=== PATIENT | male | born 1935 | race African-American/Black ===

== ENCOUNTER 2020-03-10 11:49 | Inpatient (IN) | payer OTHER ==
[~2020-03-10] VITALS: Ht 182.9 cm; Wt 70.6 kg
[2020-03-10 11:51] VITALS: BP 122/58
[2020-03-10 12:13] LABS: ABSOLUTE NEUTROPHILS 8.3 thou/uL (1.4-8.2); BASOPHILS 0.8 % (0.0-2.0); EOSINOPHILS 1.8 % (0.0-3.0); HEMATOCRIT 45.4 % (42.0-52.0); HEMOGLOBIN 15.5 gm/dL (14.0-18.0); LYMPHOCYTES 8.6 % (24.0-44.0); MCH 30.8 pg (26.0-34.0); MCV 90.4 fL (80.0-100.0); PLATELET COUNT 212 thou/uL (150-400); POLYS 82.8 % (36.0-66.0); RBC 5.03 mil/uL (4.50-6.00); RDW 14.8 % (10.5-14.5)
[2020-03-10 12:20] LABS: CALCIUM 8.3 mg/dL (8.5-10.1); CREATININE 1.4 mg/dL (0.7-1.3); POTASSIUM 3.9 mmol/L (3.5-5.1)
[2020-03-10] MEDS ORDERED: VITAMIN D21250 MC1 PO (12:24)
[2020-03-10] MEDS ORDERED: ARICEPT10 M1 PO (12:24)
[2020-03-10] MEDS ORDERED: NORVASC10 MG PO (12:25)
[2020-03-10] MEDS ORDERED: LEVO-T50 MCG PO (12:25)
[2020-03-10] MEDS ORDERED: NAMENDA 5 MG TAB5 M1 PO (12:25)
[2020-03-10 12:26] LABS: ALBUMIN 3.5 g/dL (3.4-5.0); DIRECT BILIRUBIN 0.2 mg/dL (<0.1-0.2); TOTAL BILIRUBIN 1.4 mg/dL (<0.1-1.0)
[2020-03-10] MEDS ORDERED: EZETIMIBE10 MG PO (12:26)
[2020-03-10] MEDS ORDERED: ZESTRIL40 MG PO (12:26)
[2020-03-10] MEDS ORDERED: LIPITOR40 MG PO (12:26)
[2020-03-10] MEDS ORDERED: ASA81BEC PO (12:26)
--- NOTE | 2020-03-10 12:30 | EKG ---
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
[2020-03-10 12:42] LABS: URINE BILIRUBIN NEGATIVE (Negative); URINE BLOOD TRACE (Negative); URINE CLARITY CLEAR; URINE COLOR YELLOW; URINE GLUCOSE-RANDOM* NEGATIVE (Negative); URINE KETONES 1+ (Negative); URINE LEUKOCYTES-REFLEX NEGATIVE (Negative); URINE NITRITE-REFLEX NEGATIVE (Negative); URINE PROTEIN (DIPSTICK) NEGATIVE (Negative); URINE SPECIFIC GRAVITY 1.025 (1.005-1.035)
[2020-03-10 12:54] LABS: AMP/METHAMP Negative (Negative); BARBITURATES Negative (Negative); BENZODIAZEPINES Negative (Negative); COCAINE Negative (Negative); METHADONE Negative (Negative); OPIATES Negative (Negative); PCP Negative (Negative)
[2020-03-10 14:19] VITALS: BP 119/58
[2020-03-10 14:50] VITALS: BP 135/67
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
[2020-03-10 19:29] VITALS: BP 141/71
[2020-03-10 22:51] VITALS: BP 141/71
--- NOTE | 2020-03-11 06:20 | NUR ---
Assumed care @ 1900 on 03/10/20. In bed at the start of shift. Awakens to voice, alert but does not respond to orientation questions, not even to person. Compliant with medication administration. Got out of bed multiple times and then reclined into a hallie chair in the day room. 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 Sleep 8.5 hours overnight.
[2020-03-11 08:00] VITALS: BP 139/77
--- NOTE | 2020-03-11 08:55 | NUR ---
0710 ASSUMED CARE OF PATIENT, PATIENT IN BED WITH EYES CLOSED AT THAT TIME. 0830 TO DAYROOM FOR BREAKFAST. MEDICATIONS GIVEN WHOLE. WILL CONTINUE TO OBSERVE.
[2020-03-11 09:48] LABS: CALCIUM 8.9 mg/dL (8.5-10.1); CREATININE 1.5 mg/dL (0.7-1.3); POTASSIUM 3.7 mmol/L (3.5-5.1)
[2020-03-11 10:24] LABS: TSH 4.031 uIU/mL (0.358-3.740)
--- NOTE | 2020-03-11 14:51 | NUR ---
LORENZO and Dr. Kasper contacted pt's daughter and JOSE Sheryl and obtained background hx. In 2014, pt underwent testing that resulted in him being dx with cognitive impairment. Lately, he has been aggressive with his family. His daughter would like assistance in placing him into a facility. Pt has 5 siblings; 4 are and his living sister lives in [place]. Pt has 6 children. Pt has been 1 and is now . Pt served in the [employer]. He suffers from high cholesterol. Sheryl said pt has NKDA. LORENZO emailed a listing of NH options from the Medicare.gov website to . LORENZO team will continue to follow pt during his stay on this unit.
--- NOTE | 2020-03-11 17:59 | NUR ---
PATIENT CALM AND COOPERATIVE. PATIENT MUMBLES AND HARD TO UNDERSTAND. PATIENT SITS IN DAYROOM QUIETLY ON COUCH. PATIENT DID REST FOR 1.5 HRS TODAY IN ROOM. PATIENT IS NOT ORIENTED, UNABLE TO ANSWER QUESTIONS WHEN ASKED. PATIENT ASKED ABOUT GOING DOWN STAIRS TODAY AND WHEN ASIAN STUDIES PROGRAM CHAIR TRIED TO REDIRECT HIM PATIENT STARTED TO MUMBLE.
[2020-03-11 19:37] VITALS: BP 97/51
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
--- NOTE | 2020-03-12 01:25 | NUR ---
Assumed care at change of shift. Pt. was sitting in day room on couch watching TV. Assessment was completed. Pt. was calm and cooperative. He is alert and oriented to name only. His speech is mumbled and nonsensical. His affect is lacking emotion and his behavior was well controlled. He was cooperative with cares and took medication whole with water. No coughing or choking noted after swallowing. No signs or symptoms of pain or distress noted.
[2020-03-12 07:20] VITALS: BP 91/52
--- NOTE | 2020-03-12 09:01 | NUR ---
ASSUMED CARE AT 0700 THIS MORNING. HE IS SITTING AT THE DINING ROOM TABLE, DRESSED. HE TOOK HIS MEDICATIONS WITHOUT DIFFICULTY. QUIET AND NON VERBAL TO THIS RN AT BREAKFAST. LUNGS CTA, HRR.
--- NOTE | 2020-03-12 09:05 | NUR ---
ASSUMED CARE AT 0700 THIS MORNING. HIS AMLODIPINE WAS HELD THIS MORNING DUE TO B/P OF . HE TOOK THE REMAINDER OF HIS MEDICATIONS WITHOUT DIFFICULTY. HE IS EATING WELL AND FEEDING HIMSELF. HE DENIES ACHES AND PAINS THIS MORNING.
[2020-03-12 09:54] VITALS: BP 91/52
[2020-03-12 13:44] LABS: HEMATOCRIT 41.8 % (42.0-52.0); HEMOGLOBIN 14.2 gm/dL (14.0-18.0); MCH 30.5 pg (26.0-34.0); MCV 89.8 fL (80.0-100.0); RBC 4.65 mil/uL (4.50-6.00); RDW 14.9 % (10.5-14.5); WBC 10.4 thou/uL (4.0-11.0)
[2020-03-12 14:04] LABS: ALBUMIN 3.7 g/dL (3.4-5.0); ANION GAP 12 mmol/L (7-16); BUN 58 mg/dL (7-18); CALCIUM 8.5 mg/dL (8.5-10.1); CHLORIDE 95 mmol/L (98-107); CO2 21 mmol/L (21-32); CREATININE 2.4 mg/dL (0.7-1.3); GLUCOSE 128 mg/dL (74-106); MAGNESIUM 2.2 mg/dL (1.8-2.4); POTASSIUM 4.1 mmol/L (3.5-5.1); SGOT 30 U/L (15-37); SGPT 30 U/L (30-65); SODIUM 128 mmol/L (136-145); TOTAL BILIRUBIN 0.5 mg/dL (<0.1-1.0); TOTAL PROTEIN 8.1 g/dL (6.4-8.2); TROPONIN-I <0.06 ng/mL (<0.06)
--- NOTE | 2020-03-12 17:08 | NUR ---
SW met with patient 1:1 in lieu of group due to COVID-19 restrictions. Patient engaged with SW but had limited responsiveness due to cognitive impairment.
[2020-03-12 19:42] VITALS: BP 124/66
--- NOTE | 2020-03-12 22:15 | NUR ---
Assumed care of patient this pm shift. Patients sodium 128, BUN and Creatinine rising. Patient is to be transferred to 214. Patient appears to be in a good mood. Patients speech is garbled. Patient in hospital attire. Patient denies pain, denies hi/si. Patient is difficult to understand, yes and no questions help with simplifying communication with staff. Patient takes medications whole. Patient ambluates with an unsteady gait. Patient is currently sitting in a wheel chair. Patients assessment shows clear breath sounds, active bowel sounds, and s1 s2 heard with auscultation. Daughter called regarding patients discharge to 2nd floor.
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
== END 2020-03-12 22:41 | disposition short-term general hospital (02) | DRG 56 ==
LOC: ER 11:49 → SBH 13:54 → EROBS 13:54 → SBH 14:36
PROVIDERS: Emergency Medicine; Internal Medicine; ADMIT Psychiatry & Neurology Psychiatry
DX: G30.9 Alzheimer's disease, unspecified (principal); N17.0 Acute kidney failure with tubular necrosis; F02.81 Dementia in other diseases classified elsewhere, unspecified severity, with behavioral disturbance; N17.9 Acute kidney failure, unspecified; E03.9 Hypothyroidism, unspecified; I12.9 Hypertensive chronic kidney disease with stage 1 through stage 4 chronic kidney disease, or unspecified chronic kidney disease; N18.9 Chronic kidney disease, unspecified; E78.5 Hyperlipidemia, unspecified; Z79.82 Long term (current) use of aspirin; Z79.899 Other long term (current) drug therapy; Z88.5 Allergy status to narcotic agent; Z88.8 Allergy status to other drugs, medicaments and biological substances; Z95.1 Presence of aortocoronary bypass graft; I95.1 Orthostatic hypotension
CPT/HCPCS: 10880

== ENCOUNTER 2020-03-12 20:58 | Observation (INO) | payer OTHER ==
--- NOTE | ~2020-03-12 | HC ---
[place] [address] CONSULTATION Name: TERRENCE SO Room #: 202-P ADM IN M.R.#: [id number] Admission: 03/12/20 Attend Phys: Lucía Hicks MD Discharge: Date of : 35 Report #: [id number] THIS REPORT FOR: cc: EVERETT - Family physician unknown EVERETT - Family physician unknown Gurmeet Dukes MD ~ CC: Lucía FLOYD unknown DATE OF SERVICE: 03/13/2020 REASON FOR CONSULTATION: Elevated creatinine. REASON FOR PRESENTATION: Transferred from his behavioral unit due to abnormal creatinine. HISTORY OF PRESENT ILLNESS: This is obtained from the medical chart as the patient is currently not able to provide me with history. He has Alzheimer's dementia, hypertension, ____, coronary artery disease, looks like that labs were drawn on the patient and this showed that his creatinine is up to 2.4. He was transferred to our hospital for further evaluation and management. History is very limited due to the patient's current mental status. With resuscitation, the patient's creatinine has gone down to his baseline of around 1.5. PAST MEDICAL HISTORY: Per medical chart, 1. Hypertension. 2. Hyperlipidemia. 3. ____. 4. Alzheimer dementia. PAST SURGICAL HISTORY: CABG. SOCIAL HISTORY: Unobtainable given the patient's current mental status. FAMILY HISTORY: Unobtainable given the patient's current mental status. ALLERGIES: OXYCODONE. MEDICATIONS: 1. Lisinopril. 2. ____. 3. Atorvastatin. 4. Amlodipine. REVIEW OF SYSTEMS: Unobtainable given the patient's current mental status. [address] [place] [address] CONSULTATION Name: TERRENCE SO Room #: 202-P [facility] IN M.R.#: [id number] Admission: 03/12/20 Attend Phys: Lucía Hicks MD Discharge: Date of : 35 Report #: [id number] PHYSICAL EXAMINATION: GENERAL: He is disoriented. VITAL SIGNS: Blood pressure is 125/51, temperature is 36.3. HEAD AND NECK: No jugular venous distention. CHEST: Decreased air entry bilaterally. CARDIOVASCULAR: No rub detected. ABDOMEN: Soft, nontender with no hepatosplenomegaly. EXTREMITIES: Lower extremities, no edema. LABORATORY VALUES: Revealed a BUN of 42, creatinine of 1.5. Sodium is 132. IMPRESSION AND PLAN: 1. Acute kidney injury due to volume depletion while on an angiotensin converting enzyme inhibitor. 2. His creatinine seems to be responding to IV fluid. Continue with IV fluid until the patient is able to take orally. 3. I am available for any questions. Now that the patient's creatinine is coming back to his baseline, I will sign off. By: 0954 1037 Gurmeet Dukes MD /nt
[~2020-03-12 20:58] MED LIST: ARICEPT10 M1 PO; ASA81BEC PO; EZETIMIBE10 MG PO; LEVO-T50 MCG PO; LIPITOR40 MG PO; NAMENDA 5 MG TAB5 M1 PO; NORVASC10 MG PO; VITAMIN D21250 MC1 PO; ZESTRIL40 MG PO
[2020-03-12 23:02] VITALS: BP 135/61
[2020-03-13 03:42] VITALS: BP 114/62
--- NOTE | 2020-03-13 04:16 | NUR ---
PT WAS A TRANSFER FROM [facility] DUE TO VERONIKA. PT IS ALERT TO SELF AND CONFUSED. PT BECAME SLIGHTLY BECAME COMBATIVE. UNABLE TO ANSWER ADMISSION QUESTIONS, RN SPOKE TO PT'S DAUGHTER, ABBIE. ADMISSION ASSESSMENT, EDUCATION AND DATA COMPLETED WITH DAUGHTER OVER THE PHONE. NO SIGN OF DISTRESS NOTED IN PT. IV FLUID STARTED. FALL PRECAUTION IN PLACE. CONTINUE TO MONITOR PATIENT, DENIES ANY NEEDS AT THIS TIME.
[2020-03-13 06:16] LABS: HEMATOCRIT 38.8 % (42.0-52.0); HEMOGLOBIN 13.1 gm/dL (14.0-18.0); MCH 30.3 pg (26.0-34.0); MCHC 33.8 g/dL (28.0-37.0); MCV 89.6 fL (80.0-100.0); RBC 4.33 mil/uL (4.50-6.00); RDW 14.1 % (10.5-14.5); WBC 9.7 thou/uL (4.0-11.0)
[2020-03-13 06:27] LABS: CALCIUM 7.6 mg/dL (8.5-10.1); CREATININE 1.5 mg/dL (0.7-1.3); POTASSIUM 3.8 mmol/L (3.5-5.1)
[2020-03-13 07:19] VITALS: BP 125/51
[2020-03-13 11:34] VITALS: BP 135/49
--- NOTE | 2020-03-13 18:20 | NUR ---
PT A&O TO SELF, VSS, NO APPARENT PAIN. PATIENT SPEAKS IN WORD SALAD, IMPULSIVE AND COMBATIVE AT TIMES. 1X ORDER OF GEODON GIVEN AND PATIENT SLEPT FOR 15 MINS AND ATTEMPTED TO GET OUT OF BED AGAIN. PATIENT PICKS AT IV AND REMOVES TIE LAYER. PATIENT HAS FREQUENT URINATION. RENAL AND PSYCH ON BOARD. NO SIGNS OF DISTRESS, WILL CONTINUE TO MONITOR.
[2020-03-13 19:46] VITALS: BP 135/56
[2020-03-14 04:31] VITALS: BP 154/85
[2020-03-14 04:53] VITALS: BP 148/66
--- NOTE | 2020-03-14 07:26 | NUR ---
PATIENTS CARES WERE ASSUMED AT SHIFT CHANGE. PATIENT WAS ASSESSED AND MEDS WERE PASSED. PATIENT WAS CLEANED UP AND LINEN CHANGED. AFTER MEDS PATIENT DID SLEEP ALL NIGHT. THE SITTER WAS TAKEN AT ABOUT TEN. NO ISSUES WITH BEHAVIOR. HOURLY ROUNDS WERE MADE AND BED IN LOW AND LOCKED POSITION.
[2020-03-14 07:43] VITALS: BP 163/69
[2020-03-14 09:04] LABS: CREATININE 1.2 mg/dL (0.7-1.3); MAGNESIUM 2.1 mg/dL (1.8-2.4); POTASSIUM 3.9 mmol/L (3.5-5.1)
[2020-03-14 09:08] LABS: HEMATOCRIT 41.8 % (42.0-52.0); HEMOGLOBIN 13.9 gm/dL (14.0-18.0); MCHC 33.3 g/dL (28.0-37.0); MCV 90.1 fL (80.0-100.0); RBC 4.64 mil/uL (4.50-6.00); RDW 14.5 % (10.5-14.5); WBC 7.2 thou/uL (4.0-11.0)
[2020-03-14] MEDS ORDERED: MIRALAX17 GM PO (11:10)
[2020-03-14] MEDS ORDERED: GEODON20 M1 IM (11:10)
[2020-03-14] MEDS ORDERED: LEVO-T25 MCG PO (11:16)
[2020-03-14 11:25] VITALS: BP 150/70
--- NOTE | 2020-03-14 13:07 | NUR ---
ASSESSMENT CHARTED. PT ALERT AND ORIENTED TO SELF. VSS. ORDERS GIVEN TO DISCHARGE PT TO [address] [place] [address]. REPORT CALLED IN TO 5SOUT.
--- NOTE | 2020-03-14 16:22 | NUR ---
Patient admitted from [facility] with planned dc back to unit today. Sp with [facility] who expected patient to return today. no further needs.
== END 2020-03-14 13:09 | disposition psychiatric hospital, planned readmission (93) ==
LOC: 2N 20:58 → ENTRNSPT 03-14 12:44 → 2N 03-14 13:09
PROVIDERS: Nurse Practitioner Family; ADMIT Internal Medicine
DX: N17.9 Acute kidney failure, unspecified (principal); E86.9 Volume depletion, unspecified; G30.9 Alzheimer's disease, unspecified; F02.80 Dementia in other diseases classified elsewhere, unspecified severity, without behavioral disturbance, psychotic disturbance, mood disturbance, and anxiety; I95.1 Orthostatic hypotension; I12.9 Hypertensive chronic kidney disease with stage 1 through stage 4 chronic kidney disease, or unspecified chronic kidney disease; E11.22 Type 2 diabetes mellitus with diabetic chronic kidney disease; N18.9 Chronic kidney disease, unspecified; I25.10 Atherosclerotic heart disease of native coronary artery without angina pectoris; E03.9 Hypothyroidism, unspecified; E78.5 Hyperlipidemia, unspecified; Z79.4 Long term (current) use of insulin
CPT/HCPCS: 10081

== ENCOUNTER 2020-03-14 13:17 | Inpatient (IN) | payer OTHER ==
[~2020-03-14] VITALS: Ht 170.2 cm; Wt 72.6 kg
[~2020-03-14 13:17] MED LIST changes: +GEODON20 M1 IM; +LEVO-T25 MCG PO; +MIRALAX17 GM PO
--- NOTE | 2020-03-14 14:27 | NUR ---
PT. ADMITTED AT 1245 FROM THE MEDICAL FLOOR. PT. HAS DEMENTIA AND CANNOT ANSWER ANY QUESTIONS OF HIM. HE CAME TO THE FLOOR AND WAS PLACED IN BED. HE GOT RIGHT UP AND DR. PANDYA AND THIS RN PUT HIM IN A RECLINING CHAIR. HE CAME ON THE FLOOR AND THEN STOOD UP AND WALKED AWAY. PT. ATE LUNCH ON THE MEDICAL FLOOR.
--- NOTE | 2020-03-14 14:29 | NUR ---
Before pt went to medical floor he was this SW's pt. SW emailed Sheryl Morales asking if she was able to make choices from the listing she provided her on Saturday. SW team will continue to follow pt during his stay on this unit.
[2020-03-14 18:27] VITALS: BP 150/70
[2020-03-14 19:32] VITALS: BP 132/76
--- NOTE | 2020-03-15 00:35 | NUR ---
Assumed care of patient this pm shift. Patient in good spirits sitting in a recliner in the mileu. Patient is able to answer yes and no questions but needs redirection to stay on point in a conversation. Patient denies pain. Patient denies hi/si. Patient is wearing hospital clothes. Patient is ambulatory. Patients assessment shows clear breath sounds, active bowel sounds, and s1 s2 heard with auscultation. Patient is alert and oriented to self. We will continue to monitor.
[2020-03-15 06:31] LABS: CALCIUM 8.5 mg/dL (8.5-10.1); CREATININE 1.4 mg/dL (0.7-1.3); POTASSIUM 3.9 mmol/L (3.5-5.1)
[2020-03-15 07:30] VITALS: BP 131/74
--- NOTE | 2020-03-15 15:07 | NUR ---
PATIENT CARE ASSUMED THIS MORNING AT 0700 AM. PATIENT HAS BEEN RESTLESS - WANDERING AROUND THE JENKINS AND NEEDING REDIRECTION. CONFUSED - QUESTIONS ADDRESSED BUT THOUGHT PROCESSES TANGERIAL AND NOT RATIONAL. ALERT TO SELF ONLY. NEEDS TO DRINK MORE FLUIDS AND COMPLIANT WHEN STAFF SITS WITH HIM AND ENCOURAGES HIM TO DO SO. PATIENT TAKES MEDICATIONS CRUSHED IN PUDDING COMPLIANTLY. CALM - NO AGITATION OR AGGRESSION EVIDENT. COMPLIANT WITH CARES WELL.
--- NOTE | 2020-03-15 15:59 | NUR ---
PATIENT DID NOT HAVE OT WORK WITH HIM INSTRUCTED BY DR. PNADYA. EARLIER IN AFTERNOON THERAPIST STATED PATIENT NOT FOCUSED AND SHE COULD NOT HAVE HIM ENGAGE IN DIRECTIONS. ADVISED WOULD RETURN LATER ON. WHEN SHE RETURNED AT 3:30 PATIENT WAS SOUND ASLEEP IN HIS ROOM. ONCE AGAIN WE REFRAINED FROM WAKENING HIM. PATIENT HAS BEEN CALM AND SUBDUED ALL AFTERNOON.
[2020-03-15 19:40] VITALS: BP 129/68
[2020-03-15 19:47] VITALS: BP 129/68
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
--- NOTE | 2020-03-16 05:34 | NUR ---
5-5-20 care transfered at 1915; 1939 PT sitting in day room with eyes open, skin w/d, pt AAOx1, calm, pleasant and cooperative. Pt reports bi-lat knee pain at 5 on 0-10 scale; Pt denies SI/SH/HI. Pt had zero difficults taking medication with pudding, tylenol 650mg prn given. Re-evaluated pain 2145 pt scaled pain at 2 on 0-10 scale. Please referr to nursing interventions for more detail information. Zero acute distress noted.
[2020-03-16 07:26] VITALS: BP 130/52
[2020-03-16 10:16] VITALS: BP 130/52
--- NOTE | 2020-03-16 10:26 | NUR ---
ASSUMED CARE AT 0700 THIS MORNING. PT. ASLEEP IN HIS BED. HE DID NOT GET UP FOR BREAKFAST THIS MORNING. MEDS WERE CRUSHED AND PUT IN YOUGART. HE TOOK THESE WITHOUT PROBLEMS NOTED. HE WAS ALLOWED TO SLEEP IN THIS MORNING.
[2020-03-16 19:37] VITALS: BP 112/54
[2020-03-16 19:40] VITALS: BP 112/54
--- NOTE | 2020-03-17 05:20 | NUR ---
03-16-20 CARE TRANSFERED AT 1915; 1940 PT SITTING IN DAY ROOM, AAOX1, PT REPORTED HE JUST NEEDS TO GET TO HIS CAR, THEN HE CAN GO HOME. REDIRECTED PT THAT HE WAS IN THE HOSPITAL. PT WAS PLEASANT AND COOPERATIVE THROUGHOUT ASSESSMENT. PT DENIES ANY PAIN AND SI/SH/HI. APPROXIMATELY 0030 PT AWOKE AND THOUGHT HE WAS HOME WITH HIS , AND WAS TAPPING ON ROOMMATES ARM; REORIENATED HE WAS IN HOSPITAL AND HIS WAS HOME SAFE. PLEASE REFER TO NURSING INTERVENTIONS FOR MORE DETAIL INFORMATION. ZERO ACUTE DISTRESS NOTED.
[2020-03-17 07:30] VITALS: BP 129/59
--- NOTE | 2020-03-17 13:18 | NUR ---
Up ambulating t/o unit with slightly unsteady gait at times. Alert to name only. Rambling speech to other questions about orientation. Denies SI/HI. Breath sounds clear t/o. Reg HR auscultated. Color pink with brisk capillary refill and palpable peripheral pulses. No edema noted in lower extremities. Incontinent of large amt yellow urine per brief and then was able to void in toilet. Yellow liquid stool per toilet. Active bowel sounds over soft, rounded abdomen.
--- NOTE | 2020-03-17 14:06 | NUR ---
SW sent referrals for pt to [facility], [facility], [facility], [facility], and [facility]. SW team will continue to follow pt during his stay on this unit.
[2020-03-17 19:38] VITALS: BP 122/70
[2020-03-18 00:42] VITALS: BP 122/70
--- NOTE | 2020-03-18 01:33 | NUR ---
Assumed care of patient this pm shift. Patient was wondering the halls looking for unlocked rooms. Patient is ambulatory. Patient in good spirits. Patients conversation bounces from one idea or memory to another. Patient takes medications crushed in pudding. Patient denies hi/si. Patient denies pain. Patient is oriented to self. Patients assessment shows clear breath sounds, active bowel sounds, and s1 s2 heard with auscultation. Patient is very impulsive and wanders around alot. Patient is redirectable but can be resistive. We will continue to monitor.
[2020-03-18 08:37] VITALS: BP 134/73
--- NOTE | 2020-03-18 08:58 | NUR ---
LORENZO recieved a PC from Sylvia Castaneda at [facility]. Sylvia informed they would not be able to accept Pt on memory care unit due to that unit not accepting new Pt's at this time.
[2020-03-18 10:11] LABS: ALBUMIN 3.7 g/dL (3.4-5.0); CALCIUM 8.7 mg/dL (8.5-10.1); CREATININE 1.6 mg/dL (0.7-1.3); PHOSPHORUS 3.2 mg/dL (2.5-4.9); POTASSIUM 5.1 mmol/L (3.5-5.1)
--- NOTE | 2020-03-18 13:58 | NUR ---
Up ambulating in unit with slow, regular gait. Alerts to name but has confused speech to other orientation questions. Initially stated he was in [place] but then stated he was in [place]. Did not recognize he was in hospital. Compliant with meds and fluids with encouragement. Responded to questions about SI/HI with confused speech, no speech/behavior suggestive of SI/HI. Breath sounds clear t/o. Reg HR auscultated. Color pink with brisk capillary refill and palpable peripheral pulses. No edema noted. Incontinent of large amt yellow urine in brief. Active bowel sounds over soft, rounded abdomen.
[2020-03-18 18:41] VITALS: BP 107/39
[2020-03-18 19:30] VITALS: BP 91/47
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
[2020-03-19 00:47] VITALS: BP 91/47
[2020-03-19 07:46] VITALS: BP 139/87
[2020-03-19 08:00] VITALS: BP 139/87
--- NOTE | 2020-03-19 08:00 | NUR ---
PT RESTING AT THIS TIME.
--- NOTE | 2020-03-19 11:34 | NUR ---
PT WAS SLEEPING THIS AM. PT UP NOW AT THIS TIME SITTING AT TABLE IN DINING ROOM.
--- NOTE | 2020-03-19 14:27 | NUR ---
ADM TRAMADOL 25MG PO FOR PAIN TO RT THIGH OF 10 ON 1-10 SCALE.
--- NOTE | 2020-03-19 18:31 | NUR ---
PT SITTING IN ANOTHER ROOM. PT TALKED TO HIS ON PHONE NOT MAKING ANY SINCE. PT STATED HE NEEDED TO GO TO BATHROOM. ASSISTED PT TO ROOM, PT JUST WALKED AWAY FROM THE BATHROOM. PT NEEDING REDIRECTED TO HIS ROOM.
[2020-03-19 19:27] VITALS: BP 144/100
--- NOTE | 2020-03-20 05:02 | NUR ---
Assumed care of pt @ 1900. Pt calm et cooperative most of shift. Pt with difficulty redirecting during shift et had a hard time convincing pt to take crushed medications in pudding. Finally dissolved medications in thickened orange juice et pt drank most of fluid with meds. Ambulates the halls ad cammie with slightly unsteady gait. Pt refuses to use walker. VSWNL. Health assessment with no abnormalities noted at present time. Denies SI/HI but unsure if pt completely understood the questions. Currently resting in recliner in dayroom with eyes open. Will continue to monitor per protocol.
[2020-03-20 07:38] VITALS: BP 103/70
--- NOTE | 2020-03-20 11:48 | NUR ---
0700 ASSUMED CARE OF PTIENT, PATIENT AMBULATING IN JENKINS WITH NO SHIRT AT THAT TIME. PATIENT ATE BREAKFAST AFTER SETTING UP BREAKFAST FOR HIM. 0840 PATIENT ALERT & ORIENTED TO SELF. MEDICATION GIVEN CRUSHED WITH ORANGE JUICE. PATIENT CONFUSED. UNABLE TO ANSWER QUESTIONS. 0900 PATIENT AMBULATIN IN JENKINS AND DAYROOM TALKING WITH OTHER, NOT MAKING SENSE. 0910 PATIENT FELL IN DAYROOM PER SECURITY VIDEO. HILTON BLAKELY NOTICED PATIENT ON FLOOR, NO WITNESSES AT THE TIME OF FALL. PATIENT WAS HELPED BACK TO CHAIR. ZOO DIRECTOR NOTIFIED. AT 0920 BP- 122/55 P- 66. NO APPARENT INJURIES NOTED. PATIENT UNABLE TO ANSWER QUESTIONS PATIENT CONFUSED PRIOR AND AFTER INCIDENT. PATIENT'S ROM WNL DOES NOT APPEAR TO BE IN PAIN. PATIENT IN GERICHAIR AND PLACED CLOSER TO NURSES STATION. DR ZHENG NOTIFIED AT 0936 CALLED DAUGHTER AND LEFT MESSAGE TO CALL UNIT. NOTIFIED DAUGHTER AT 1025 WHEN DAUGHTER CALLED BACK. AT 1020 BP-129/61 PATIENT ATTEMPTOING TO REMOVE BP CUFF P- 58. PATIENT SLEEPING IN VICKY CHAIR AT THAT TIME. WILL CONTINUE TO OBSERVE. HIGH FALL RISK ADDED TO CARE PLAN. SAFTEY PRECAUTIONS IN PLACE. YELLOW SOCK ON PATIENT, YELLOW SHIRT ON PATIENT, CHAIR ALARM IN PLACE.
--- NOTE | 2020-03-20 23:07 | NUR ---
BEGAN CARE @ 19:15 ON 03/20/20. IN THE MILEU, SOCIALIZING WITH PEERS, AMBULATING THROUGH OUT THE DAY ROOM. A&OX1 CONFUSION NOTED. ALLOWED ASSESSMENT, HOWEVER DID NOT INHALE DEEPLY FOR ASSESSMENT OF LUNGS. HRRR, LUNGS CTA BILAT, WITH LIMITED COOPERATION, ABD N X 4Q. UNABLE TO REPORT IF HE HAS HAD A BM TODAY. TOOK MEDS CRUSHED IN A SMALL AMOUNT OF ORANGE JUICE. REFUSED ADDITIONAL JUICE. TRAMADOL 25MG PROVIDED FOR HIP PAIN. ALLOWED HIMSELF TO BE TAKEN TO THE TOILET AND TO BED @ 2200. IN BED AT THIS WRITING, EYES CLOSED, RESPIRATIONS EVEN AND UNLABORED. BED IN LOW POSITION, BED ALARM SET.
[2020-03-21 01:45] VITALS: BP 103/70
[2020-03-21 07:13] LABS: CALCIUM 8.5 mg/dL (8.5-10.1); CREATININE 1.3 mg/dL (0.7-1.3); POTASSIUM 4.5 mmol/L (3.5-5.1)
[2020-03-21 07:24] VITALS: BP 129/57
[2020-03-21 13:47] VITALS: BP 129/57
--- NOTE | 2020-03-21 13:55 | NUR ---
ASSUMED CARE AT 0700 THIS MORNING. PT. STABLE. HE IS UP IN THE DINING ROOM. HE IS NAPPING OFF AND ON. WHEN HE IS AWAKE, HE BABBLES, NOT MAKING MUCH SENSE OF HIS CONVERSATION. HE CONTINUES TO BE VERY CONFUSED. HE GOT UP AND WALKED AROUND THE UNIT. HE IS NOT REDIRECTABLE MOST OF THE TIME. HE DID TAKE HIS MORNING MEDICATIONS EXCEPT HE SPIT OUT HIS COLACE. WAS INFORMED OF THE SAME.
--- NOTE | 2020-03-21 15:25 | NUR ---
LORENZO contacted [facility] and spoke with admissions. She was asked to fax over updated notes on pt as facility is considering his referral. LORENZO faxed updates to [facility]. LORENZO team will continue to follow pt during his stay on this unit.
[2020-03-21 19:36] VITALS: BP 106/37
[2020-03-21 20:30] VITALS: BP 106/37
--- NOTE | 2020-03-22 00:55 | NUR ---
PATIENT WAS UP WANDERING IN THE DINING ROOM THIS EVENING WHEN I CAME ON DUTY. HE IS A/0 X 1. HE RAMBLES ON WITH DISORGANIZED THINKING. HE DENIES PAIN AND DOES NOT APPEAR TO BE EXPERIENCING ANY DISCOMFORT. PATIENT DID HAVE AN HS SNACK. HE STARTED OLANZAPINE 5MG PO THIS EVENING. IT WAS GIVEN CRUSHED IN APPLESAUSE. PATIENT WAS RESTLESS AND DID NOT WANT TO SLEEP. HE DID SLOW DOWN BUT REMAINED AGITATED WHEN PLACED IN A RECLINER WITH LAP TOMAS ON IN PLACE AND SNUG BUT NOT TOO TIGHT. PATIENT WAS FIDGETY AND WAS TRYING TO TAKE HIS CLOTHING OFF. HE DID FINALLY TAKE HIS YELLOW SHIRT AND BITE A HOLE IN TO IT. ORDER OBTAINED FROM DR PANDYA FOR TRAZADONE 75MG PO HS PRN AND WAS GIVEN TO PATIENT. PT CALMED AND FELL ASLEEP IN RECLINER WITHIN 45 MINUTES. HE IS CURRENTLY SLEEPING. BREAKS ARE LOCKED ON PATIENT RECLINER AND HE APPEARS COMFORTABLE. LAP TOMAS IS IN PLACE. CONTINUING TO MONITOR.
[2020-03-22 08:29] VITALS: BP 111/52; BP 121/85
--- NOTE | 2020-03-22 13:10 | NUR ---
Sitting in recliner in day room without s/o distress. Very sleepy, more awake at lunch. Took AM with alot of encouragement crushed in yogurt this AM. Confused speech to questions, orientated to self only. No speech/behavior suggestive of SI/HI. Able to stand with encouragement and bear wt but at times resistant to wt bearing. Breath sounds clear t/o. Reg HR in 40s with brisk capillary refill, fingers cool to touch. Color pink. No edema noted. Incontinent of large amt yellow urine. Active bowel sounds over soft, rounded abdomen. No BM documented since 03/17. Dr. Kasper and Dr. Dillon notified, will place orders for low HR and constipation.
[2020-03-22 19:50] VITALS: BP 138/64
--- NOTE | 2020-03-23 01:09 | NUR ---
Assumed care of patient this pm shift. Patient confused, oriented to self only at this time. Patient has difficulty following conversation. Patient seems to answer yes and no questions ok. Patient is a fall risk with a very wobbly gait. Patient requires much attention to reduce falls. Patient denies si. Patient denies pain. Patient takes medicaitons crushed in pudding. Patients assessment shows clear breath sounds, active bowel sounds, and s1 s2 heard with auscultation. We will continue to monitor.
[2020-03-23 07:52] VITALS: BP 150/75
--- NOTE | 2020-03-23 08:06 | EKG ---
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
[2020-03-23 14:42] VITALS: BP 150/75
--- NOTE | 2020-03-23 14:48 | NUR ---
ASSUMED CARE AT 0700 THIS MORNING. PT. CONTINOUS TO BE VERY CONFUSED. HE IS AMBULATING IN THE JENKINS. HE HAS TO BE REMINDED TO REMOVE HIMSELF FROM ATTEMPTING TO GET OUT THE UNIT DOOR. HE WENT TO SIT DOWN IN A VICKY-CHAIR. HE WENT TO SIT DOWN, HE ALMOST MISSED THE CHAIR. A PCT RUSHED OVER TO ASSIST THE PATIENT. HE BECAME MORE CONFUSED AND BECAME COMBATIVE. STAFF HAD TO ASSIST THE PT. AND THE PCT IN THIS. PT. MEDICATIONS WERE CRUSHED AND PUT IN PUDDING AND GIVEN TO THE PT. HE TOOK THESE WITHOUT PROBLEMS NOTED. AFFECT BLAND MOOD DEPRESSED.
[2020-03-23 19:32] VITALS: BP 137/78
[2020-03-23 20:57] VITALS: BP 137/78
--- NOTE | 2020-03-24 01:54 | NUR ---
Assumed care of patient this pm shift. Patient irritable and resistant to cares. Patients affect flat. Patient takes medications crushed in pudding or applesauce. Patient is ambulatory with an unsteady gait. Patient is often found crawling on the floor. Patient is confused and oriented to name only. Patients assessment shows clear breath sounds, active bowel sounds, and s1 s2 heard with auscultation. Patient tried to kick and punch the nurse as RN was helping patient from the reclining chair to the bed. Patient settled down once in bed. We will continue to monitor.
[2020-03-24 07:40] VITALS: BP 104/40
--- NOTE | 2020-03-24 10:58 | NUR ---
Nutrition: pt admitted to [facility] with major neurocognitive disorder, Alzheimers with behaviors. Seen for LOS. Unable to visit with pt. Has been confused and combative. On regular diet eating variable amounts, typically refuses one meal a day with overall intake averaging > 50% of meals. Ensure is ordered TID and pt occasionally drinks. Nsg attempts to make up for meal refusals by offering supplements. No recent weight change. Average 155-160# last 2 weeks. Will continue present interventions and place as low nutrition risk.
--- NOTE | 2020-03-24 12:58 | NUR ---
LORENZO contacted both [facility] and [facility]. No answer at both admissions line. SW left ms. LORENZO sent referrals for pt to [facility], [facility], and [facility]. SW team will continue to follow pt during his stay on this unit.
--- NOTE | 2020-03-24 15:31 | NUR ---
INITALLY THIS AM AT APPROX 0730 IN DAYROOM SLEEPING IN RECLINER-REFUSED BREAKFAST PUSHING STAFFS HANDS AWAY ANGRILY WITH ATTEMPTS TO WAKEN FOR MEAL.DID WAKE AT APPROX 0915 AND AM MEDICATIONS GIVEN CRUSHED IN YOGURT. SPEECH SLURRED AND INCOHERENT AT TIMES. ORIENTED TO NAME ONLY AND BELIEVES HE IS "AT THE FARM" . EXIT SEEKING. GAIT UNSTEADY BUT DOES NOT FOLLOW STAFFS REQUESTS FOR SAFTEY IE ROLLER WALKER,WAITING FOR STAFF TO ASSIT-RESTLESS UP AND DOWN CHAIR IN DAYROOM-APPEARS UNABLE TO SIT STILL-NO FACIAL GRIMACING OR EVIDENCE OF PAIN/DISCOMFORT. BECOMES AGITATED AND COMBATIVE WITH ATTEMPTS TO TOILET AND ONCE ON STOOL IMMEDIATLY ATTEMPTS TO STAND UP AGAIN
--- NOTE | 2020-03-24 17:04 | NUR ---
INCREASINGLY AGITATED AND RESTLESS THIS PM-ENTERING INTO OTHERS ROOM AND BECOMING DIFFICULT TO REDIRECT-SHOVING STAFF-"GET AWAY I DON'T NEED YOU" REFUSED 1600 ZYPREXA PO DESPITE MULTIPLE ATTEMPTS BY VARIOUS STAFF. DR PANDYA CONTACTED AND ZYPRXA 5MG GIVEN IM IN LEFT DELTOID
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
[2020-03-25 07:00] VITALS: BP 148/84
--- NOTE | 2020-03-25 11:30 | NUR ---
Assumed care at 0700. Pt. was not conversant with this nurse. Took meds crushed in yogurt. No c/o pain offered, no guarding or moaning. PT was here to work with patient and he was somnolent; she will return another day to try again.
--- NOTE | 2020-03-25 12:23 | NUR ---
SW received a call from [facility] stating that they actually do not have any openings at this time and wont have one for possibly 2-3 weeks. SW also received ac call from [facility] stating they are unable to meet pt's needs. SW team will continue to follow pt during her stay on this unit.
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
[2020-03-25 19:58] VITALS: BP 99/45
[2020-03-25 20:53] VITALS: BP 99/45
--- NOTE | 2020-03-25 22:40 | NUR ---
Assumed care of patient this pm shift. Patient in good spirits. Patient sitting in reclining chair in [facility]. Patient is difficult to understand. Patient does not appear to show any signs of hi/si. Patient takes medications crushed in pudding. Patient ambulates without assistance. Patients assessment shows clear breath sounds, active bowel sounds, and s1 s2 heard with auscultation. Patient is calm and cooperative. Patient is dressed in hospital clothes, yellow shirt and yellow socks. We will continue to monitor.
--- NOTE | 2020-03-25 23:00 | NUR ---
Late dayshift note: Pt. has been in the dayroom most of the dayshift. He offered no complaints. When awake he appears sad, unengaged, nonconversant.
[2020-03-26 09:31] VITALS: BP 110/56
[2020-03-26 12:29] LABS: URINE BILIRUBIN NEGATIVE (Negative); URINE BLOOD TRACE (Negative); URINE CLARITY CLEAR; URINE COLOR YELLOW; URINE GLUCOSE-RANDOM* NEGATIVE (Negative); URINE KETONES NEGATIVE (Negative); URINE LEUKOCYTES-REFLEX NEGATIVE (Negative); URINE NITRITE-REFLEX NEGATIVE (Negative); URINE PROTEIN (DIPSTICK) NEGATIVE (Negative); URINE SPECIFIC GRAVITY 1.015 (1.005-1.035)
[2020-03-26 12:43] LABS: HEMATOCRIT 41.5 % (42.0-52.0); HEMOGLOBIN 13.7 gm/dL (14.0-18.0); MCH 30.1 pg (26.0-34.0); RBC 4.55 mil/uL (4.50-6.00); RDW 14.6 % (10.5-14.5); WBC 8.4 thou/uL (4.0-11.0)
[2020-03-26 12:48] LABS: CALCIUM 8.6 mg/dL (8.5-10.1); CREATININE 1.2 mg/dL (0.7-1.3); POTASSIUM 3.8 mmol/L (3.5-5.1)
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
[2020-03-26 19:17] VITALS: BP 128/71
[2020-03-26 23:38] VITALS: BP 128/71
--- NOTE | 2020-03-27 01:56 | NUR ---
Assumed care of patient at change of shift. Pt. is sleeping in bed with eyes closed. Respirations even and non-labored. Abrasiosn x 3 noted to left lower extremities. Periorbital and bipedal edema noted. Date of last BM is unknown. Pt. is alert to name only and confused as to date and time. Pt. denies pain and no signs or symptoms of pain or discomfort noted.
[2020-03-27 08:00] VITALS: BP 129/61
--- NOTE | 2020-03-27 11:49 | NUR ---
Date of Admission: 03/14/20 Date of Activity Therapy Assessment:Unknown Activity Goal:Impulse Control Initial Goal:1:1, engagement in the milieu Weekly progress towards goal:Did not achieve Group participation level:NA due to COVID 19 Behaviors observed:Pt particiapted in no small groups or 1:1 sessions with RT. Pt was observed sleeping most of the day and has very little social interactions with peers or staff. Plan: No change towards goal
--- NOTE | 2020-03-27 12:57 | NUR ---
PATIENT WAS IN BED SLEEPING WHEN CARE ASSUMED. WHEN AWAKEN, MORNING MEDICATION GIVEN AT BEDSIDE, WELL TOLERATED. PATIENT FED BREAKFAST IN BED BY THIS SLP, HE CONSUMED 75%. PATIENT WENT BACK TO SLEEP SHORLY AFTER. PATIENT IS NOW AWAKE, UP IN GERICHAIR IN DAY ROOM, CONSUMED 100% OF LUNCH. LCTA, RESP EVEN/UNLABORED, NO SOA/CYANOSIS NOTED. BS+X4, ABD SOFT, NON-TENDER TO TOUCH. PATIENT IS NOT ABLE TO APPROPRIATELY RESPOND TO ASSESSMENT QUESTIONS DUE TO COGNITIVE IMPAIRMENT. NO AGITATION OR AGGRESSION BEHAVIOR NOTED AT THIS TIME. NO SIGN OF ACUTE DISTRESS NOTED, WILL MONITOR FOR SAFETY.
--- NOTE | 2020-03-27 14:00 | NUR ---
SW attempted to complete a video conference call using with patient's daughter Sheryl. There were technical difficulties and the video call was not able to connect. Daughter called patient via telephone.
[2020-03-27 19:56] VITALS: BP 104/83
--- NOTE | 2020-03-28 04:24 | NUR ---
ASSUMED CARE ON 03/27/20 @ 19:15, RECLINED IN VICKY CHAIR. HAS FEET HANGING OFF THE FOOT REST ON BOTH SIDES. RETURNED FEET TO THE FOOTREST X2 ASSIST AND PLACED A ROLLED UP BLANKET ON EACH SIDE TO DETER PT HANGING HIS FEET OFF THE SIDE OF THE FOOT REST. TOOK MEDS CRUSHED IN VANILLA PUDDING. SLEEPING IN VICKY CHAIR, SLEEPING WELL. WILL CONTINUE TO MONITOR Q 12 MINUTES FOR PATIENT SAFETY.
[2020-03-28 08:00] VITALS: BP 153/84
--- NOTE | 2020-03-28 08:00 | NUR ---
PT OUT IN DINING ROOM SLEEPING IN RECLINER, NOT ABLE TO AWAKE FOR BREAKFAST. PT HAS HEAD BACK WITH EYES CLOSED AND MOUTH OPEN, NO SNORING NOTED.
[2020-03-28 09:25] VITALS: BP 153/84
--- NOTE | 2020-03-28 12:48 | NUR ---
PT STILL NOT EATING OR WAKING UP. PT DID TAKE OLANZIPINE CRUSHED IN PUDDING. PT DID TAKE A BITE OF PUDDING.
--- NOTE | 2020-03-28 14:00 | NUR ---
PT STILL SLEEPING IN RECLINER IN DINING ROOM. OFFERED DRINK, PT UNABLE TO DRAW OUT OF STRAW.
--- NOTE | 2020-03-28 16:29 | NUR ---
PT STILL SLEEPY. OFFERED ENSURE DRINK, PT STILL UNALBE TO DRINK OUT OF STRAW.
--- NOTE | 2020-03-28 17:08 | NUR ---
DR. PANDYA MADE PATIENT COMFORT CARE DUE TO NOT EATING OR DRINKING.
--- NOTE | 2020-03-28 18:07 | NUR ---
SW participated separate phone conferences with patient's daughter Sheryl and patient's son Eris. Patient's family was informed his health is failing. Hospice options were briefly discussed. Family expressed an understanding and agreement with hospice.
[2020-03-28 19:38] VITALS: BP 111/56
--- NOTE | 2020-03-29 06:10 | NUR ---
ASSUMED CARE ON 03/28/20 @ 19:15, RECLINING IN VICKY CHAIR. COOPERATED WITH ASSESSMENT. HRRR, LUNG SOUNDS DIMINISHED BUT CLEAR. ABD BOWEL SOUNDS ACTIVE. BM NOTED TODAY ON 03/28. PALLATIVE CARE PROVIDED. SUBLINGUAL MORPHINE SULFATE 5 MG PROVIDED @ 20:16 FOR GENERAL PAIN OF 6/10, ATIVAN 0.5MG PROVIDED FOR ANXIETY. WILL CONTINUE TO MONITOR FOR PAIN, ANXIETY, AND TO PROVIDE INCONTINENT CARE.
--- NOTE | 2020-03-29 07:52 | NUR ---
ASSUMED CARE OF PATIENT HE IS UP IN SEEMA CHAIR SLEEPING. PT IS COMFORT CARE.
[2020-03-29 07:54] VITALS: BP 133/93
--- NOTE | 2020-03-29 09:51 | NUR ---
LORENZO received a vm from Angelique from [facility] at [facility] requesting updates for pt as they are considering the referral; fax number [phone]. LORENZO sent updates and contacted Angelique to ask about hospice facilities they work with. No answer. Dianne saeed. LORENZO team will continue to follow pt during his stay on this unit.
--- NOTE | 2020-03-29 20:47 | NUR ---
Pt. laying in bed on left side. His affect is flat and he is refusing to answer questions or to open eyes. He is not showing any signs of distress or pain.
[2020-03-30 01:32] VITALS: BP 133/93
--- NOTE | 2020-03-30 02:31 | NUR ---
2229 Pt.'s brief wet with urine and as changed. NO BM noted. Pt. became slightly combative with cares. No breakdown of skin noted to buttocks or jannie-area. Pt. as respositioned with pillows for support. No signs or symptoms of pain or disress noted.
--- NOTE | 2020-03-30 03:00 | NUR ---
0024 Pt. resting quietly in bed with eyes closed. Respirations even and non-labored. Pt. reacts to tactile stimulation only. He does not carrying on a conversation or make statements. Brief if dry and patient repositioned himself onto his back. No signs or symptoms of pain or acute distress noted.
--- NOTE | 2020-03-30 06:02 | NUR ---
0224 No change in patient status. Pt. turned back to right side. No signs or symptoms of pain or distress.
--- NOTE | 2020-03-30 06:02 | NUR ---
0445 No change in patient status. Pt. put himself partially on his back. NO signs or symptoms of pain or distress noted.
--- NOTE | 2020-03-30 06:03 | NUR ---
0545 PRN Morphine 20 mg & Ativan 0.5 mg given for pain and anxiety related to end of life care. Respirations 16 and O2 sat was 95%. Pt. took morphine 1 ml. and Ativan 0.25 ml. Pt. took morphine without incident and after taking Ativan he began to choke. Head of bed elevated to [employer] and pt made to perform a chin tuck. Few small pats were given to back. Situation resolved and pt. ceased to choke or cough. Pt. was put on his right side with head of bed elevated and pillows to assist with positioning. 0605 Pt. rechecked and no coughing or choking noted. Less than 5 cc of h20 given with syringe very slowly for patient's comfort due to dry oral mucous membranes. No choking or coughing noted with water.
[2020-03-30 09:44] VITALS: BP 85/47
--- NOTE | 2020-03-30 11:19 | NUR ---
Nutrition followup: Pt has been made comfort care and at present not eating due to unresponsiveness. RD will defer further evals.
--- NOTE | 2020-03-30 13:45 | NUR ---
Assumed care 0700.Patient is obtunded.Heleans to the right side. He was unable to eat breakfast--would not wake up.He was up in the recliner til 1100then put to bed. He was given jannie care after urine incontinence. Oral care given. Respirations even and unlabored. He wasturned again 1310-pericare with skin barrier to his bottom forprevention of decub, oral care done with slight bleeding from his gum.Given Ativan and Morphine liquid prns for slight moaning. He has not been awake enoughto answerquestions from nurse.
--- NOTE | 2020-03-30 15:07 | NUR ---
After LORENZO and Dr Kasper discussed pt's status, they contacted Sheryl. Dr. Kasper explained he believes her father is now appropiate for hospice house. LORENZO researched what hospice houses were in the [facility] and saw that [facility] was in that area. LORENZO asked for permission to send referral their and then second to Hospice if [facility] does not have availability. Sheryl said that was ok. LORENZO contacted [facility] and spoke with Lyn who said they had many beds and asked LORENZO to fax a referral to [phone]. LORENZO team will continue to follow pt during his stay on this unit.
--- NOTE | 2020-03-30 17:58 | NUR ---
Report called to [facility]:[phone]. Latest VS= T=98.2, P=68, R=15, O2=96%, EE=117/71. Pt. is unable to sign papers for discharge.
--- NOTE | 2020-03-30 19:27 | NUR ---
PICKED UP BY [facility] ON STRETCHER X2 ASSIST AND LEFT THE UNIT @ 21:25. PATIENT EXPLAINED TRANSFER AND RIDE, RESPIRATIONS EVEN AND UNALBORED, COOPERATIVE WITH TRANSFER.
--- NOTE | 2020-03-31 12:05 | NUR ---
LORENZO did a courtesy call for Sheryl; she said she is doing ok, and thanked LORENZO for her call. No other needs for SW team to address at this time.
--- NOTE | 2020-04-02 18:01 | D ---
[facility] [place] [address] DISCHARGE SUMMARY Name: TERRENCE SO Room #: 528B-B DIS IN M.R.#: [id number] Admission: 03/14/20 Attend Phys: José Miguel Kasper DO Discharge: 03/30/20 Date of : 35 Report #: [id number] THIS REPORT FOR: cc: [place] - Family physician unknown FAM - Family physician unknown José Miguel Kasper DO ~ THIS REPORT FOR: //name// CC: José Miguel FLOYD unknown DATE OF SERVICE: 03/30/2020 INPATIENT PSYCHIATRIC DISCHARGE SUMMARY The patient had been readmitted from a brief medical stay for acute kidney injury. ATTENDING PHYSICIAN: José Miguel Kasper DO. 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 He is very advanced in stage, currently is on hospice house. Other medical issues, he has been treated for chronic kidney disease, hypertension, hypercholesterolemia, hypothyroidism, hyperlipidemia, history of coronary artery disease. The patient reportedly had significant disease issues. Anyways moving forward, his discharge medications were none as he is terminal, going to one of [place] [facility], comfort feedings. He is bedridden. REASON FOR ADMISSION: Originally, he was sent from the [facility] and he was apparently agitated at the [facility]. In the early days on our unit, he did have resistive behaviors and mood swings at staff, but he began to decline. He has not taken anything in oral roughly in the last 2 days. He does not wake up from the sternal rub or noxious stimuli. We spoke with his daughter, Sheryl, who is his DPOA and I think she wisely elected for discharge to [facility]. 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 PHYSICAL EXAMINATION: VITAL SIGNS: At time of discharge, temperature 36.8, pulse 69, respirations 14, BP 85/47, O2 sat 95%. shallow respirations not right prior discharge to [facility] [address] [place] [address] DISCHARGE SUMMARY Name: TERRENCE SO Room #: 528B-B [facility] IN M.R.#: [id number] Admission: 03/14/20 Attend Phys: José Miguel Kasper DO Discharge: 03/30/20 Date of : 35 Report #: [id number] MENTAL STATUS EXAMINATION: A well-developed, ill-appearing male, in bed. Attention impaired. Concentration impaired. Speech nonverbal. Thought process and thought content, unable to ascertain. Unable to assess for suicidality, homicidality, auditory, visual, or tactile hallucinations as this is apparent terminal delirium. Insight impaired. Judgment impaired. Fund of knowledge well below average and cannot be ascertained on the day of discharge due to his comatose condition. PROGNOSIS: For this patient is terminal with expected in the next few days. Also, his p.o. medications were stopped about 48 hours before discharge from the unit and they did include olanzapine. He had been treated up with the dose of 5 mg 3 times a day. <ELECTRONICALLY SIGNED> By: José Miguel Kasper, 04/02/20 1801 [id number] José Miguel Kasper DO /nt
== END 2020-03-30 19:25 | disposition hospice, home (50) | DRG 56 ==
LOC: SBH 13:17
PROVIDERS: Hospitalist; ADMIT Psychiatry & Neurology Psychiatry
DX: G30.9 Alzheimer's disease, unspecified (principal); F01.51 Vascular dementia, unspecified severity, with behavioral disturbance; N17.0 Acute kidney failure with tubular necrosis; N18.9 Chronic kidney disease, unspecified; G93.49 Other encephalopathy; F02.80 Dementia in other diseases classified elsewhere, unspecified severity, without behavioral disturbance, psychotic disturbance, mood disturbance, and anxiety; E03.9 Hypothyroidism, unspecified; E78.5 Hyperlipidemia, unspecified; I25.10 Atherosclerotic heart disease of native coronary artery without angina pectoris; I12.9 Hypertensive chronic kidney disease with stage 1 through stage 4 chronic kidney disease, or unspecified chronic kidney disease; R45.1 Restlessness and agitation; E16.2 Hypoglycemia, unspecified; R00.1 Bradycardia, unspecified; K59.00 Constipation, unspecified; Z95.1 Presence of aortocoronary bypass graft; Z88.6 Allergy status to analgesic agent; Z88.8 Allergy status to other drugs, medicaments and biological substances; Z79.82 Long term (current) use of aspirin; Z79.899 Other long term (current) drug therapy
CPT/HCPCS: 10880